=== PATIENT | female | born 1940 | race Two or more races ===

== ENCOUNTER → 2017-07-26 | Day surgery (SDC) | payer MEDICARE, MEDICAID ==
[~2017-07-26] VITALS: Ht 152.4 cm; Wt 59.0 kg
[~2017-07-26] MED LIST: GABA-497 PO; GLIP-116 PO; HCTZ 25 MG TAB PO ONE; HYDR25TA4 PO; IOHEXOL 350 MG/ML 100ML IJ ONE; LEVO-28 PO; LIDOCAINE 2%HCL (LOCAL ANESTH.) INJ 20ML MDV ONE; MIDAZOLAM HCL 1MG/1ML-2 ML VIAL ONE; MULTTAB PO; NIFE60TA59 PO; NIFEdipine ER 30 MG TAB PO ONE; OMEP20TA85 PO; SIMV10TA84 PO; SITA50TA13 PO; cefTRIAXone 1GM/50ML D5W 50 ML IV ONE; fentaNYL CITRATE 100 MCG/2 ML VL ONE
== END | disposition home or self-care (01) ==
LOC: CATH 09:15
PROVIDERS: ATTEND Radiology Diagnostic Radiology
DX: N13.5 Crossing vessel and stricture of ureter without hydronephrosis (principal); Z90.710 Acquired absence of both cervix and uterus; E11.9 Type 2 diabetes mellitus without complications
CPT/HCPCS: 50693; 74425; 76000; C1769; C1887; C1894; J0696; J1644; J2250; J3010; J7030; Q9967; 99152; 99153

== ENCOUNTER → 2017-08-09 | Outpatient (CLI) | payer MEDICARE, MEDICAID ==
[~2017-08-09] MED LIST changes: -HCTZ 25 MG TAB PO ONE; +IOHEXOL 300 MG/ML 100ML BOTTLE IJ ONE; -IOHEXOL 350 MG/ML 100ML IJ ONE; -LIDOCAINE 2%HCL (LOCAL ANESTH.) INJ 20ML MDV ONE; -MIDAZOLAM HCL 1MG/1ML-2 ML VIAL ONE; -NIFEdipine ER 30 MG TAB PO ONE; -cefTRIAXone 1GM/50ML D5W 50 ML IV ONE; -fentaNYL CITRATE 100 MCG/2 ML VL ONE
== END | disposition home or self-care (01) ==
LOC: RT 11:25
PROVIDERS: ATTEND Urology
DX: N35.9 Urethral stricture, unspecified (principal)
CPT/HCPCS: 74425; Q9967

== ENCOUNTER 2018-12-27 11:46 | Emergency (ER) | payer MEDICARE, MEDICAID ==
[~2018-12-27] VITALS: Ht 149.9 cm; Wt 48.5 kg
[~2018-12-27 11:46] MED LIST changes: -GABA-497 PO; +GABA300C11 PO; -IOHEXOL 300 MG/ML 100ML BOTTLE IJ ONE
[2018-12-27 12:58] VITALS: BP 143/72
[2018-12-27 13:38] LABS: Basophils # (auto) 0 uL; Basophils % (auto) 0.4 % (0.0-2.0); Eosinophils # (auto) 0 uL; Eosinophils % (auto) 0.5 % (0.0-7.0); Hematocrit 37.7 % (36.0-46.0); Hemoglobin 12.6 g/dL (12.2-16.2); Lymphocytes # (auto) 1.6 uL; Lymphocytes % (auto) 24.8 % (10.0-50.0); Mean Corpuscular Hemoglobin 29.7 pg (28.0-32.0); Mean Corpuscular Hgb Conc. 33.4 g/dL (32.0-36.0); Mean Corpuscular Volume 88.9 fL (80.0-100.0); Monocytes # (auto) 0.5 uL; Monocytes % (auto) 7.8 % (0.0-12.0); Neutrophils # (auto) 4.3 uL; Neutrophils % (auto) 66.5 % (37.0-80.0); Nucleated Red Blood Cells % 0.1 %; Platelet Count (auto) 288 10^3/uL (140-450); Red Blood Cells 4.24 10^6/uL (4.0-5.20); Red Cell Distribution Width 12.9 % (11.8-14.3); White Blood Cell 6.5 10^3/uL (4.4-10.8)
[2018-12-27 14:40] LABS: Chloride 101 mmol/L (98-107); Potassium 4.1 mmol/L (3.5-5.1); Sodium 137 mmol/L (136-145)
[2018-12-27 14:43] LABS: Albumin 3.5 g/dL (3.4-5.0); Anion Gap 10 (5-15); Blood Urea Nitrogen 42 mg/dL (7-18); Calcium 9.2 mg/dL (8.5-10.1); Carbon Dioxide 26 mmol/L (21-32); Glucose 136 mg/dL (74-106); Magnesium 1.7 mg/dL (1.6-2.6)
[2018-12-27 14:49] LABS: Alanine Aminotransferase 18 U/L (13-56); Alkaline Phosphatase 64 U/L (45-117); Aspartate Aminotransferase 20 U/L (15-37); BUN/Creatinine Ratio 20.8; Bilirubin, Total 0.2 mg/dL (0.2-1.0); GFR African American 31 mL/min; GFR Non-African American 25 mL/min; Total Protein 7.4 g/dL (6.4-8.2)
[2018-12-27 14:51] LABS: Amylase 47 U/L (25-115); Lipase 104 U/L (73-393)
[2018-12-27] MEDS ORDERED: PANTOPRAZOLE 40 MG TAB PO ONE (15:15)
[2018-12-27 16:43] LABS: Urine Bacteria FEW /hpf (None Seen); Urine Blood Negative /uL (Negative); Urine Hyaline Cast FEW /lpf (0 - 2); Urine Specific Gravity 1.016 (1.001-1.035); Urine WBC 50 /hpf (0 - 5); Urine WBC Clumps PRESENT /hpf (None Seen)
== END 2018-12-27 16:43 | disposition home or self-care (01) ==
LOC: ER 11:47
DX: K29.70 Gastritis, unspecified, without bleeding (principal); E11.9 Type 2 diabetes mellitus without complications; I10 Essential (primary) hypertension; E78.5 Hyperlipidemia, unspecified; Z90.49 Acquired absence of other specified parts of digestive tract; Z79.899 Other long term (current) drug therapy
CPT/HCPCS: 36415; 74176; 80053; 81001; 82150; 83690; 83735; 84484; 85025; 93005

== ENCOUNTER 2019-05-06 18:46 | Inpatient (IN) | payer MEDICARE, MEDICAID | END 2019-05-11 18:00 | disposition home or self-care (01) | LOC: ICU WEST 05-07 00:34 → CENTRAL 05-08 16:34 → ER 18:46 → OVERFLOW 18:47 → EAST 23:20 | DX: K52.9 Noninfective gastroenteritis and colitis, unspecified (principal); N18.6 End stage renal disease; E87.2 Acidosis; N39.0 Urinary tract infection, site not specified; N17.9 Acute kidney failure, unspecified; E16.2 Hypoglycemia, unspecified; D64.9 Anemia, unspecified; R10.9 Unspecified abdominal pain; I51.7 Cardiomegaly; I10 Essential (primary) hypertension; E78.5 Hyperlipidemia, unspecified; K21.9 Gastro-esophageal reflux disease without esophagitis; E11.8 Type 2 diabetes mellitus with unspecified complications; N18.9 Chronic kidney disease, unspecified; E11.649 Type 2 diabetes mellitus with hypoglycemia without coma; E86.9 Volume depletion, unspecified; E87.6 Hypokalemia; Z79.899 Other long term (current) drug therapy ==

== ENCOUNTER 2020-04-28 13:21 | Emergency (ER) | payer MEDICARE, MEDICAID ==
[~2020-04-28] VITALS: Ht 152.4 cm; Wt 59.0 kg
[~2020-04-28 13:21] MED LIST changes: +AMOX250C3 PO; +FAMO-12 PO; +FURO20TA3 PO; -GABA300C11 PO; -GLIP-116 PO; +GLIP10TA9 PO; -HYDR25TA4 PO; -MULTTAB PO; +NIFE1TAB30 PO; -NIFE60TA59 PO; -OMEP20TA85 PO; +PATI1POW PO; +SIMV-13 PO; -SIMV10TA84 PO
[2020-04-28] MEDS ORDERED: SODIUM CHLORIDE 0.9% 500 ML IV ONE (13:55)
[2020-04-28] MEDS ORDERED: cloNIDine HCL 0.1 MG TAB PO ONE (14:00)
[2020-04-28] MEDS ORDERED: InsuLIN REG 1unit/0.01ml Soln (100units/ml) IV ONE (14:00)
[2020-04-28 14:26] LABS: Basophils # (auto) 0 10 ^3/uL (0-0.2); Basophils % (auto) 0.4 % (0.0-2.0); Eosinophils # (auto) 0 10 ^3/uL (0-0.8); Eosinophils % (auto) 0.3 % (0.0-7.0); Hematocrit 41.6 % (36.0-46.0); Hemoglobin 13.7 g/dL (12.2-16.2); Lymphocytes % (auto) 17.8 % (10.0-50.0); Mean Corpuscular Hemoglobin 29.3 pg (28.0-32.0); Mean Corpuscular Hgb Conc. 32.9 g/dL (32.0-36.0); Monocytes # (auto) 0.2 10 ^3/uL (0-1.3); Monocytes % (auto) 3.9 % (0.0-12.0); Neutrophils # (auto) 4.5 10 ^3/uL (1.6-8.6); Neutrophils % (auto) 77.6 % (37.0-80.0); Platelet Count (auto) 253 10^3/uL (140-450); Red Blood Cells 4.67 10^6/uL (4.0-5.20); Red Cell Distribution Width 13.9 % (11.8-14.3); White Blood Cell 5.8 10^3/uL (4.4-10.8)
[2020-04-28 14:55] LABS: Albumin 3.5 g/dL (3.4-5.0); Anion Gap 5 (5-15); Blood Urea Nitrogen 48 mg/dL (7-18); Calcium 9.2 mg/dL (8.5-10.1); Carbon Dioxide 29 mmol/L (21-32); Chloride 99 mmol/L (98-107); Sodium 133 mmol/L (136-145)
[2020-04-28 15:01] LABS: Alanine Aminotransferase 24 U/L (13-56); Alkaline Phosphatase 165 U/L (45-117); Aspartate Aminotransferase 18 U/L (15-37); BUN/Creatinine Ratio 24.7; Bilirubin, Total 0.3 mg/dL (0.2-1.0); GFR African American 32 mL/min; GFR Non-African American 26 mL/min; Total Protein 8.1 g/dL (6.4-8.2)
[2020-04-28 15:14] LABS: Glucose 460 mg/dL (74-106)
[2020-04-28 15:21] VITALS: BP 160/63
== END 2020-04-28 15:56 | disposition home or self-care (01) ==
LOC: ER 13:21
DX: I12.9 Hypertensive chronic kidney disease with stage 1 through stage 4 chronic kidney disease, or unspecified chronic kidney disease (principal); E11.22 Type 2 diabetes mellitus with diabetic chronic kidney disease; N18.3 Chronic kidney disease, stage 3 (moderate); E11.65 Type 2 diabetes mellitus with hyperglycemia; K21.9 Gastro-esophageal reflux disease without esophagitis; E78.5 Hyperlipidemia, unspecified; Z90.49 Acquired absence of other specified parts of digestive tract; Z98.51 Tubal ligation status
CPT/HCPCS: 36415; 80053; 82962; 84484; 85025; 93005; 96361; 96374; 99284; J1815; J7040

== ENCOUNTER 2020-05-29 16:11 | Emergency (ER) | payer MEDICARE, MEDICAID ==
[~2020-05-29] VITALS: Ht 157.5 cm; Wt 72.6 kg
[2020-05-29 17:36] LABS: Basophils # (auto) 0.1 10 ^3/uL (0-0.2); Eosinophils # (auto) 0.2 10 ^3/uL (0-0.8); Eosinophils % (auto) 3.1 % (0.0-7.0); Hematocrit 40.8 % (36.0-46.0); Hemoglobin 13.6 g/dL (12.2-16.2); Lymphocytes # (auto) 1.8 10 ^3/uL (0.4-5.4); Lymphocytes % (auto) 24.6 % (10.0-50.0); Mean Corpuscular Hemoglobin 29.6 pg (28.0-32.0); Mean Corpuscular Hgb Conc. 33.4 g/dL (32.0-36.0); Mean Corpuscular Volume 88.7 fL (80.0-100.0); Monocytes # (auto) 0.7 10 ^3/uL (0-1.3); Monocytes % (auto) 10.1 % (0.0-12.0); Neutrophils # (auto) 4.4 10 ^3/uL (1.6-8.6); Neutrophils % (auto) 61.2 % (37.0-80.0); Platelet Count (auto) 278 10^3/uL (140-450); Red Cell Distribution Width 13.9 % (11.8-14.3); White Blood Cell 7.2 10^3/uL (4.4-10.8)
[2020-05-29 18:06] LABS: Alanine Aminotransferase 28 U/L (13-56); Albumin 3.4 g/dL (3.4-5.0); Anion Gap 8 (5-15); Aspartate Aminotransferase 23 U/L (15-37); BUN/Creatinine Ratio 22.1; Blood Urea Nitrogen 45 mg/dL (7-18); Calcium 9.4 mg/dL (8.5-10.1); Carbon Dioxide 26 mmol/L (21-32); Chloride 104 mmol/L (98-107); GFR African American 30 mL/min; GFR Non-African American 25 mL/min; Glucose 141 mg/dL (74-106); Potassium 3.3 mmol/L (3.5-5.1); Sodium 138 mmol/L (136-145)
[2020-05-29 18:11] LABS: Alkaline Phosphatase 125 U/L (45-117); Bilirubin, Total 0.2 mg/dL (0.2-1.0); Total Protein 7.5 g/dL (6.4-8.2)
[2020-05-29] MEDS ORDERED: AMOXICILLIN/CLAVUL 875 MG TAB PO ONE (18:45)
[2020-05-29] MEDS ORDERED: POTASSIUM CHL 20 Meq TABLET PO ONE (18:45)
[2020-05-29] MEDS ORDERED: ONDANSETRON ODT 4 MG TAB PO ONE (19:15)
[2020-05-29] MEDS ORDERED: ACETAMINOPHEN/CODEINE#3 (300/30mg) TAB PO ONE (19:15)
[2020-05-29 19:22] LABS: Alcohol, Urine < 3.0 mg/dL (0-10); Amphetamine Screen, Urine NEGATIVE (NEGATIVE); Barbiturate Scree,Urine NEGATIVE (NEGATIVE); Benzodiazephine Screen, Urine NEGATIVE (NEGATIVE); Cannabinoid Screen, Urine NEGATIVE (NEGATIVE); Cocaine Screen, Urine NEGATIVE (NEGATIVE); Opiate Scree,Urine NEGATIVE (NEGATIVE); Phencyclidine Screen, Urine NEGATIVE (NEGATIVE)
[2020-05-29 19:27] LABS: Urine Bacteria NONE SEEN /hpf (None Seen); Urine Blood Negative /uL (Negative); Urine Specific Gravity 1.005 (1.001-1.035); Urine WBC 15 /hpf (0 - 5)
[2020-05-29] MEDS ORDERED: cloNIDine HCL 0.1 MG TAB PO ONE (19:30)
[2020-05-29] MEDS ORDERED: cloNIDine HCL 0.1 MG TAB ONE (19:39)
[2020-05-29 21:32] VITALS: BP 153/42
== END 2020-05-29 22:02 | disposition home or self-care (01) ==
LOC: ER 16:11
DX: J32.9 Chronic sinusitis, unspecified (principal); N39.0 Urinary tract infection, site not specified; I70.90 Unspecified atherosclerosis; I12.9 Hypertensive chronic kidney disease with stage 1 through stage 4 chronic kidney disease, or unspecified chronic kidney disease; E11.22 Type 2 diabetes mellitus with diabetic chronic kidney disease; N18.4 Chronic kidney disease, stage 4 (severe); E78.5 Hyperlipidemia, unspecified; J45.909 Unspecified asthma, uncomplicated
CPT/HCPCS: 36415; 70450; 80053; 80307; 81001; 84443; 84484; 85025; 85652; 93005